=== PATIENT | female | born 1985 | race African-American/Black ===

== ENCOUNTER 2022-07-28 22:25 | Emergency (ER) | payer OTHER, SELFPAY ==
--- NOTE | ~2022-07-28 | CT_ITS ---
EXAMINATION: CT ABDOMEN AND PELVIS WITHOUT CONTRAST CLINICAL INFORMATION: Left flank pain. Evaluate for renal calculi. COMPARISON: None TECHNIQUE: Multidetector volumetric imaging was performed from the superior aspect of the liver through the pubic symphysis. Sagittal and coronal reformatted images were obtained on the technologist's workstation. This CT examination was performed using dose optimization techniques as appropriate, variously including the following: *Automated exposure control *Adjustment of mA and/or kV according to patient size (this includes techniques or standardized protocols for targeted exams where dose is matched to indication/reason for exam; i.e. extremities or head) *Use of iterative reconstruction technique DLP: 863 mGy-cm FINDINGS: LUNG BASES: No focal consolidation or pleural effusion. Mild subsegmental atelectases. LIVER, GALLBLADDER, AND BILIARY TREE: There is a 1 cm water density cyst in the right hepatic lobe. No other focal liver observation. Normal gallbladder. No biliary ductal dilatation. PANCREAS: Diffuse fatty infiltration. The main pancreatic duct is nondilated. No peripancreatic free fluid nor inflammatory changes. SPLEEN: Unremarkable. ADRENAL GLANDS: Unremarkable. KIDNEYS AND URETERS: The kidneys are normal in size, shape, and attenuation. No hydronephrosis, hydroureter, or calculi seen. No perinephric stranding. BLADDER: Unremarkable. GASTROINTESTINAL TRACT: There are several dilated loops of small bowel with air-fluid levels in the mid and lower abdomen, for instance measuring 3.8 cm in diameter on image 45, series 3. There is some degree of swirling of the mesentery with architectural distortion raising the possibility of internal hernias. There is a nonspecific metallic density versus calcification adjacent to the jejunum on image 44, series 3. Possibly short appendix (6:42) with no associated inflammatory changes in the right lower quadrant nor cecal base to suspect acute appendicitis. No pericolonic inflammatory changes. ABDOMINAL WALL: Small fat-containing periumbilical hernias with mild fat stranding and small volume of free fluid. There is also a pocket of air in the infraumbilical abdominal wall (3:57) of uncertain etiology. Right lower abdominal wall hernia containing protrusion of loops of small bowel. LYMPH NODES: No pathologically enlarged lymph nodes. VASCULAR: Abdominal aorta is of normal diameter. PELVIC VISCERA: A low density septated structure in the left adnexa could represent an ovarian cyst or loops of small bowel, for instance image 78, series 3. There is a nonspecific metallic density posterior to the uterus (3:70). OSSEOUS STRUCTURES: No acute or aggressive appearing osseous abnormalities. Partially imaged right femoral hardware. CT/CT abdomen pelvis wo IV con IMPRESSION: There are multiple dilated loops of the small bowel in the mid and lower abdomen raising the possibility of a partial small bowel obstruction. There is some architectural distortion and swirling of the mesentery which could indicate the presence of internal hernias. There are several abdominal wall hernias containing small amount of free fluid and fat stranding in the periumbilical region, correlate with physical examination for signs of infection or strangulation. A clear transition point of the bowel in association with the abdominal wall hernias is not identified. Nonspecific low density septated structure in the left adnexa, possibly associated with the left ovary, not well delineated in the absence of IV contrast. Recommend correlation with a pelvic ultrasound.
--- NOTE | ~2022-07-28 | CT_ITS ---
EXAMINATION: CT ABDOMEN AND PELVIS WITHOUT CONTRAST CLINICAL INFORMATION: Small bowel obstruction. COMPARISON: CT abdomen/pelvis earlier today at 1:58 AM. TECHNIQUE: Multidetector volumetric imaging was performed from the superior aspect of the liver through the pubic symphysis. Sagittal and coronal reformatted images were obtained on the technologist's workstation. Oral contrast was administered. This CT examination was performed using dose optimization techniques as appropriate, variously including the following: *Automated exposure control *Adjustment of mA and/or kV according to patient size (this includes techniques or standardized protocols for targeted exams where dose is matched to indication/reason for exam; i.e. extremities or head) *Use of iterative reconstruction technique DLP: 809 mGy-cm FINDINGS: LUNG BASES: The visualized lung bases are unremarkable. LIVER, GALLBLADDER, AND BILIARY TREE: Redemonstration of simple cyst in the right hepatic lobe. Normal gallbladder. No biliary ductal dilatation. PANCREAS: Fatty infiltration. No peripancreatic inflammatory changes. SPLEEN: Unremarkable. ADRENAL GLANDS: Unremarkable. KIDNEYS AND URETERS: The kidneys are normal in size, shape, and attenuation. No hydronephrosis, hydroureter, or calculi seen. No perinephric stranding. BLADDER: Decompressed limiting its evaluation. GASTROINTESTINAL TRACT: Oral contrast opacifies the stomach and a portion of the small bowel up to the level of the mid jejunum. As before, there is redemonstration of several dilated loops of small bowel in the mid and left lower abdomen with architectural distortion and swirling of the mesentery raising the possibility of internal hernias. A complete volvulus is not identified. No pericolic inflammatory changes. ABDOMINAL WALL: Redemonstration of periumbilical and right lower abdominal wall hernias, some containing protrusion of loops of small bowel but with no clear transition point at these levels to suspect the cause of obstruction. LYMPH NODES: No pathologically enlarged lymph nodes. VASCULAR: Abdominal aorta is of normal diameter. PELVIC VISCERA: Redemonstration of low density structure in the left adnexa, likely related with the left ovary. OSSEOUS STRUCTURES: No acute or aggressive appearing osseous abnormalities. Partially imaged right femoral hardware. CT/CT abdomen pelvis wo IV con IMPRESSION: Redemonstration of several dilated loops of small bowel in the medial left lower abdomen with architectural distortion and swirling of the mesentery raising the possibility of internal hernias and partial small bowel obstruction.
[2022-07-28 22:51] VITALS: BP 119/76; PULSE 80; RESP 18; TEMP 36.3; O2SAT 99; BMI 36.5
--- OUTSIDE RECORDS SUMMARY | 2022-07-29 00:07 | XMS_ITS | Continuity of Care Document ---
:1985 Author Organization [facility] Address [address] [place] [address]- Care Team Providers Name Role Phone Hameed FEEDER ASSOCIATE, Kalyani Whtie Primary Care Physician Encounter [facility] [place] Date(s): 03/18/22 - 04/17/22 [facility] [address] [place], [place] [address] Attending Physician: Joana Blackburn Admitting Physician: AdmtrJoana Referring Physician: Admtr, ArDrea Allergies, Adverse Reactions, Alerts No Known Allergies Medications Flonase 50 mcg/inh nasal spray 1 sprays, Nares, Both, 2 times a day, # 1 each, 2 Refills, Maintenance, 03/18/22 16:31:00 EDT, [place], [id number], Partial fill upon patient request if the prescription is for a schedule II opioid drug., 1 sprays Nares, Both 2 times a... Start Date: 03/18/22 Stop Date: 06/16/22 Status: Orderedibuprofen 600 mg oral tablet 1 tablet = 600 mg, By Mouth, Every 6 hours, # 30 tablet, 0 Refills, Maintenance, 09/12/14 12:02:10, Tablet Start Date: 09/12/14 Status: OrderedPercocet-5/325 325 mg-5 mg oral tablet 1 tablet, By Mouth, Every 4 hours, PRN for pain, # 10 tablet, 0 Refills, Maintenance, 09/12/14 12:02:15, Tablet Start Date: 09/12/14 Status: Ordered Social History Social History Type Response Smoking Status 10 or more cigarettes (1/2 p ack or more)/day in last 30 days entered on: 02/02/19 Sex
--- OUTSIDE RECORDS SUMMARY | 2022-07-29 00:07 | XMS_ITS | Continuity of Care Document ---
:1985 Author Organization [facility] Address [address] [place] [address]- Care Team Providers Name Role Phone Yoseph SWARTZ, Kalyani White Primary Care Physician Encounter [facility] [place]s): 03/18/22 - 03/25/22 [facility] [address], [place] [address] Attending Physician: Aldo De La Cruz DO Referring Physician: Kalyani Hameed NP Allergies, Adverse Reactions, Alerts No Known Allergies Medications Flonase 50 mcg/inh nasal spray 1 sprays, Nares, Both, 2 times a day, # 1 each, 2 Refills, Maintenance, 03/18/22 16:31:00 EDT, [place], [id number], Partial fill upon patient request if the [...] 12:02:15, Tablet Start Date: 09/12/14 Status: Ordered Vital Signs Most recent to oldest [Reference Range]: 1 Height 165 cm (03/18/22 4:10 PM) Oxygen Saturation [94-100 %] 100 % (03/18/22 4:10 PM) Pulse Rate [55-90 bpm] 90 bpm (03/18/22 4:10 PM) Blood Pressure [90-138/55-84 mm Hg] 114/72 mm Hg (03/18/22 4:10 PM) Respiratory Rate [16-30 br/min] 20 br/min (03/18/22 4:10 PM) Temperature [96.8-100.4 DegF] 97.9 DegF (03/18/22 4:10 PM) Mode of Delivery (Oxygen) Room air (03/18/22 4:10 PM) Blood pressure sites Arm, left (03/18/22 4:10 PM) Temperature Route Temporal (03/18/22 4:10 PM) Social History Social History Type Response Smoking Status 10 or more cigarettes (1/2 p ack or more)/day in last 30 days entered on: 02/02/19 Sex
--- NOTE | 2022-07-29 00:30 | ED.GENADULT ---
HPI - General Adult General Chief complaint: General Medical Stated complaint: pain shifting through lower back, sharp to touch Time Seen by Provider: 07/28/22 23:58 Source: patient Mode of arrival: ambulatory Limitations: no limitations History of Present Illness HPI narrative: 36-year-old female came in for evaluation of left flank pain. Left flank pain started 3 days ago, described as constant pain moderate 7/10, dull aching pain localized to the left flank area with no radiation, no aggravating factor, no relieving factor, patient decline dysuria or blood in the urine or urinary frequency. No fever, no chills, normal bowel movement, normal passing flatus. Related Data Allergies Allergy/AdvReac Type Severity Reaction Status Date / Time No Known Allergies Allergy Verified 07/28/22 22:54 Review of Systems Review of Systems: All other systems are reviewed and are negative Constitutional: Reports as per HPI and Reports no additional constitutional complaints Eyes: Reports as per HPI and Reports no additional eye complaints Reports system reviewed and no additional complaints, except as documented Cardiovascular: Reports as per HPI and Reports no additional cardiovascular complaints Respiratory: Reports as per HPI and Reports no additional respiratory complaints Gastrointestinal: Reports as per HPI and Reports no additional gastrointestinal complaints Genitourinary: Reports no additional female genitourinary complaints Musculoskeletal: Reports no additional musculoskeletal complaints Skin/Breast: Reports system reviewed and no additional complaints, except as docu Psychiatric: Reports no additional psychiatric complaints Endocrine: Reports no additional endocrine complaints Hematologic/Lymphatic: Reports no additional hematologic/lymphatic complaints Allergic/Immunologic: Reports no additional allergic/immunologic complaints Reports system reviewed and no additional complaints, except as documented and Reports Abnormal speech present [facility] Social History Social History Smoked in Last 30 Days: No Use of substances other than those prescribed or required for medical reasons: No Advance Directives: No Physical Exam ED Vital Signs: Vital Signs - 24 hr 07/28/22 22:51 07/29/22 02:00 07/29/22 04:25 Temperature 97.4 F 98.0 F Pulse Rate 80 67 77 Respiratory Rate 18 16 Blood Pressure 119/76 112/65 115/65 Pulse Oximetry 99 98 97 Oxygen Delivery Method Room Air Room Air Room Air 07/29/22 06:24 Temperature 98.2 F Pulse Rate 74 Respiratory Rate 16 Blood Pressure 113/59 L Pulse Oximetry 98 Oxygen Delivery Method Room Air BMI result Body Mass Index 36.5 Vital signs have been reviewed as appeared to be correct. Blood pressure normal. Heart rate normal. Respiration rate normal. Temperature normal. Oxygen saturation normal. Appearance: Alert. Oriented X3. No acute distress. Head: Normal external exam. Normocephalic. Atraumatic. No Sanchez signs noted. No raccoon eyes noted Eyes: PERRLA. EOMI. Conjunctiva and sclera normal. Eyelids normal. ENT: TM's Normal. Pharynx normal. Uvula midline. Moist mucous membranes. No trismus noted. No drooling noted. No muffled voice noted. Neck: Normal inspection. Neck supple. FROM. No adenopathy. Thyroid Normal. No meningeal signs. No neck mass noted. CVS: Normal heart rate and rhythm. Heart sound normal. No murmurs noted. Pulses normal throughout. Respiratory: No respiratory distress. Painless inspiration. Breath sounds normal. No wheezes/rales/rhonchi noted. Chest nontender. No accessory muscle usage noted or decreased air movement noted. Abdomen: Soft and nontender. Bowel sounds normal in all 4 quadrants. No distention noted. No organomegaly noted. No visible injury noted. Back: Left CVA tenderness. Full range of motion noted. Skin: Skin warm and dry. Normal skin color. Normal skin turgor. No rashes/lesions/lacerations noted. Extremities: No lower extremity edema. Extremities exhibit normal range of motion. Extremities nontender. Neuro: Oriented X 3. Cranial nerve exam: II-XII are grossly intact No motor deficit. No sensory deficit. Reflexes normal. Course Course Course Narrative: 36-year-old female history of rupture appendectomy at age 5 presented with abdominal pain and CT is consistent with small-bowel obstruction case discussed with who requested repeat CT with p.o. contrast, result of the CT scan with contrast still consistent with a small-bowel obstruction patient will be evaluated by in the ED. The case was signed out to to follow-up on the consultation. Medications Administered Discontinued Medications Generic Name Dose Route Start Last Admin Trade Name Freq PRN Reason Stop Dose Admin Diatrizoate Meglum/Diatrizoate Sod 30 ml 07/29/22 04:40 07/29/22 04:41 Diatrizoate Meglumine, Sodium 30 Ml Solution PO 07/29/22 04:41 30 ml ONCE ONE Administration Sodium Chloride 1,000 mls @ 999 mls/hr 07/29/22 00:28 07/29/22 03:47 Ns IV 07/29/22 01:28 Infused .Q1H1M ONE Infusion Ketorolac Tromethamine 15 mg 07/29/22 00:28 07/29/22 01:15 Ketorolac Tromethamine 15 Mg/Ml Vial IVPUSH 07/29/22 00:29 15 mg ONCE ONE Administration Morphine Sulfate 2 mg 07/29/22 00:28 07/29/22 01:16 Morphine Sulfate 2 Mg/Ml Cartridge IVPUSH 07/29/22 00:29 2 mg ONCE ONE Administration Protocol Medical Decision Making Lab Data Lab results reviewed: Yes I reviewed the patient's lab results. Result diagrams: 07/29/22 00:45 07/29/22 00:45 Labs: Lab Results 07/29/22 07/29/22 07/29/22 Range/Units 00:45 00:45 00:45 WBC 9.0 (4.8-10.8) X10*3/uL RBC 5.28 (4.20-5.50) X10*6/uL Hgb 13.5 (12.0-16.0) g/dl Hct 42.7 (37.0-47.0) % MCV 80.9 (80.0-98.0) fL MCH 25.6 L (27.0-33.0) pg MCHC 31.6 (31.0-35.0) g/dl RDW 15.0 (11.0-16.0) % Plt Count 345 (160-400) X10*3/uL MPV 10.3 (9.4-12.3) fL Immature Gran % (Auto) 0.4 (0.0-0.4) % Neut % (Auto) 57.2 (45-73) % Lymph % (Auto) 35.2 (20-40) % Taylor % (Auto) 4.4 (2-11) % Eos % (Auto) 2.2 (0-4) % Baso % (Auto) 0.6 (0-2) % Lymph # (Auto) 3.2 (1.2-4.9) X10*3/uL Taylor # (Auto) 0.4 (0.1-1.2) X10*3/uL Eos # (Auto) 0.2 (0.0-0.4) X10*3/uL Baso # (Auto) 0.1 (0.0-0.2) X10*3/uL Abs Immat Gran (auto) 0.04 H (0.00-0.03) X10*3/uL Absolute Neuts (auto) 5.2 (2.0-8.3) x10*3/uL Absolute Nucleated RBC 0.000 (0.0-0.012) X10*3/uL Nucleated RBC % (auto) 0.0 (0.0-0.2) /100WBC Sodium 139 (135-145) mmol/L Potassium 5.0 (3.3-5.1) mmol/L Chloride 108 (96-108) mmol/L Carbon Dioxide 22 (22-29) mmol/L Anion Gap 14 (12-20) BUN 14 (9-16) mg/dL Creatinine 0.83 (0.5-1.4) mg/dL Estim Creat Clear Calc 101.7 Estimated GFR > 60 Random Glucose 105 (60-115) mg/dL Calcium 9.9 (8.4-10.2) mg/dL Total Bilirubin 0.2 (0.0-1.0) mg/dL Direct Bilirubin < 0.2 (0.0-0.5) mg/dL AST 22 (5-31) U/L ALT 15 (0-31) U/L Alkaline Phosphatase 78 (39-117) U/L Total Protein 7.0 (6.5-8.0) g/dL Albumin 4.1 (3.5-5.0) g/dL Lipase 61 (8-78) U/L Urine Color Urine Appearance Urine pH (5.0-9.0) Ur Specific [place] (1.005-1.025) Urine Protein (Neg-Trace) mg/dL Urine Glucose (UA) (Negative) mg/dL Urine Ketones (Negative) mg/dL Urine Blood (Negative) Urine Nitrite (Negative) Ur Leukocyte Esterase (Negative) Urine RBC (0-2) /HPF Urine WBC (0-5) /HPF Ur Squamous Epith Cells (0-2) /HPF Urine Bacteria (None Seen) Hyaline Casts (0-2) /LPF Urine Test NEGATIVE (NEGATIVE) 07/29/22 Range/Units 00:45 WBC (4.8-10.8) X10*3/uL RBC (4.20-5.50) X10*6/uL Hgb (12.0-16.0) g/dl Hct (37.0-47.0) % MCV (80.0-98.0) fL MCH (27.0-33.0) pg MCHC (31.0-35.0) g/dl RDW (11.0-16.0) % Plt Count (160-400) X10*3/uL MPV (9.4-12.3) fL Immature Gran % (Auto) (0.0-0.4) % Neut % (Auto) (45-73) % Lymph % (Auto) (20-40) % Taylor % (Auto) (2-11) % Eos % (Auto) (0-4) % Baso % (Auto) (0-2) % Lymph # (Auto) (1.2-4.9) X10*3/uL Taylor # (Auto) (0.1-1.2) X10*3/uL Eos # (Auto) (0.0-0.4) X10*3/uL Baso # (Auto) (0.0-0.2) X10*3/uL Abs Immat Gran (auto) (0.00-0.03) X10*3/uL Absolute Neuts (auto) (2.0-8.3) x10*3/uL Absolute Nucleated RBC (0.0-0.012) X10*3/uL Nucleated RBC % (auto) (0.0-0.2) /100WBC Sodium (135-145) mmol/L Potassium (3.3-5.1) mmol/L Chloride (96-108) mmol/L Carbon Dioxide (22-29) mmol/L Anion Gap (12-20) BUN (9-16) mg/dL Creatinine (0.5-1.4) mg/dL Estim Creat Clear Calc Estimated GFR Random Glucose (60-115) mg/dL Calcium (8.4-10.2) mg/dL Total Bilirubin (0.0-1.0) mg/dL Direct Bilirubin (0.0-0.5) mg/dL AST (5-31) U/L ALT (0-31) U/L Alkaline Phosphatase (39-117) U/L Total Protein (6.5-8.0) g/dL Albumin (3.5-5.0) g/dL Lipase (8-78) U/L Urine Color Yellow Urine Appearance Cloudy Urine pH 7.0 (5.0-9.0) Ur Specific [place] 1.020 (1.005-1.025) Urine Protein Negative (Neg-Trace) mg/dL Urine Glucose (UA) Negative (Negative) mg/dL Urine Ketones Negative (Negative) mg/dL Urine Blood Trace H (Negative) Urine Nitrite Positive H (Negative) Ur Leukocyte Esterase Negative (Negative) Urine RBC 0-2 (0-2) /HPF Urine WBC 0-5 (0-5) /HPF Ur Squamous Epith Cells >20 (0-2) /HPF Urine Bacteria 4+ (None Seen) Hyaline Casts 6-10 (0-2) /LPF Urine Test (NEGATIVE) Imaging Data CT scan - abdomen: Attestation: I personally reviewed and interpreted this imaging study as follows: Radiologist's impression: Redemonstration of several dilated loops of small bowel in the medial left lower abdomen with architectural distortion and swirling of the mesentery raising the possibility of internal hernias and partial small bowel obstruction. ? Discharge Plan Discharge Clinical Impression: Abdominal pain, Small bowel obstruction Patient Disposition: Still a Patient
[2022-07-29 01:03] LABS: Appearance Urine Cloudy; Color Urine Yellow; Glucose Urine UA Negative (Negative); Leukocyte Esterase Urine Negative (Negative); Nitrite Urine Positive (Negative); UMIC TRIGGER UACC YES; Urine Blood Trace (Negative); Urine Ketones Negative (Negative); Urine Protein Negative (Neg-Trace)
[2022-07-29 01:05] LABS: UPreg QC Valid YES; Urine Pregnancy NEGATIVE (NEGATIVE)
[2022-07-29] MEDS: 0.9 % Sodium Chloride 1,000 ML 999 ML IV (01:15)
[2022-07-29] MEDS: Ketorolac Tromethamine 15 MG/ML VIAL IVPUSH (01:15)
[2022-07-29 01:16] LABS: Bacteria Urine 4+ (None Seen); RBC Urine 0-2 /HPF (0-2); Squamous Epithelial Cell Urine >20 /HPF (0-2); UACC Culture Trigger YES; WBC Urine 0-5 /HPF (0-5)
[2022-07-29] MEDS: Morphine Sulfate 2 MG/ML CARTRIDGE IVPUSH (01:16)
[2022-07-29 01:24] LABS: MANUAL DIFF FLAG NO
[2022-07-29 01:27] LABS: Basophils Absolute Auto 0.1 X10*3/uL (0.0-0.2); Basophils Percent Auto 0.6 % (0-2); Eosinophils Absolute Auto 0.2 X10*3/uL (0.0-0.4); Eosinophils Percent Auto 2.2 % (0-4); Hematocrit 42.7 % (37.0-47.0); Hemoglobin 13.5 g/dl (12.0-16.0); Imm Gran Abs Auto 0.04 X10*3/uL (0.00-0.03); Imm Gran Pct Auto 0.4 % (0.0-0.4); Lymphocytes Absolute Auto 3.2 X10*3/uL (1.2-4.9); Lymphocytes Percent Auto 35.2 % (20-40); Mean Corpuscular HGB Conc 31.6 g/dl (31.0-35.0); Mean Corpuscular Hemoglobin 25.6 pg (27.0-33.0); Mean Corpuscular Volume 80.9 fL (80.0-98.0); Mean Platelet Volume 10.3 fL (9.4-12.3); Monocytes Absolute Auto 0.4 X10*3/uL (0.1-1.2); Monocytes Percent Auto 4.4 % (2-11); Neutrophils Absolute Auto 5.2 x10*3/uL (2.0-8.3); Neutrophils Percent Auto 57.2 % (45-73); Platelet Count 345 X10*3/uL (160-400); Red Blood Count 5.28 X10*6/uL (4.20-5.50)
[2022-07-29 01:49] LABS: Alanine Aminotransferase 15 U/L (0-31); Albumin Level 4.1 g/dL (3.5-5.0); Alkaline Phosphatase 78 U/L (39-117); Anion Gap 14 (12-20); Aspartate Amino Transferase 22 U/L (5-31); Bilirubin Direct < 0.2 mg/dL (0.0-0.5); Bilirubin Total 0.2 mg/dL (0.0-1.0); Blood Urea Nitrogen 14 mg/dL (9-16); Calcium 9.9 mg/dL (8.4-10.2); Carbon Dioxide 22 mmol/L (22-29); Chloride 108 mmol/L (96-108); Creatinine Clr Calc Pharmacy 101.7; Estimated Glomerular Filt Rate > 60; Glucose Random 105 mg/dL (60-115); Sodium 139 mmol/L (135-145)
[2022-07-29 02:00] VITALS: BP 112/65; PULSE 67; TEMP 36.7; O2SAT 98
[2022-07-29 02:03] LABS: Lipase 61 U/L (8-78)
[2022-07-29 04:25] VITALS: BP 115/65; PULSE 77; RESP 16; O2SAT 97
[2022-07-29] MEDS: Diatrizoate Meglumine, Sodium 30 ML SOLUTION PO (04:41)
[2022-07-29 06:24] VITALS: BP 113/59; PULSE 74; RESP 16; TEMP 36.8; O2SAT 98
--- NOTE | 2022-07-29 06:24 | PC.NURSE ---
THIS PCT ASSUMED CARE OF PT AT 0625 VS TAKEN ,I OFFER PT TO CHANGE INTO HOSPITAL ATTIRE ,BUT PT REFUSED .
--- NOTE | 2022-07-29 08:36 | P.CONGS_ITS ---
History of Present Illness Consult details Consult date: 07/29/22 Narrative: 36-year-old female who came to the emergency room last night because of what she described as back pain. She says she has had chronic back pain because of a disc disease for years. She started to have this lumbar pain about 3-4 days ago. This had persisted so she came to the emergency room yesterday. She says the pain has improved significantly. She had a CAT scan however which was officially read as question of partial small-bowel obstruction and possible internal hernia. The patient however den ies any abdominal pain. She says she has good oral intake. She has good bowel movements and is passing flatus well. She clearly states that her pain is on the lower back says she does not have any abdominal complaints at all. She says she had abdominal surgery when she was 5 years old because of appendicitis. She says she has had no abdominal isues since that time. Review of Systems Constitutional: Constitutional: Denies chills and Denies fever(s) Cardiovascular: Cardiovascular: Denies chest pain, Denies dyspnea and Denies dyspnea on exertion Respiratory: Respiratory: Denies cough, Denies dyspnea and Denies dyspnea on exertion Gastrointestinal: Gastrointestinal: Denies hematochezia and Denies change in bowel habits Genitourinary: Genitourinary: Denies hematuria Musculoskeletal: Musculoskeletal: Reports back pain and Denies limited range of motion Neurologic: Denies focal weakness and Denies convulsions Psychiatric: Psychiatric: Denies depression and Denies mood swings PMFSH Past Medical History Medical History (Updated 07/30/22 @ 00:02 by Mary Grace Ortega) Chronic back pain Social History Social History Smoked in Last 30 Days: No Use of substances other than those prescribed or required for medical reasons: No Advance Directives: No Meds Allergies Allergy/AdvReac Type Severity Reaction Status Date / Time No Known Allergies Allergy Verified 07/28/22 22:54 Physical Exam Vital Signs: Vital Signs: Last Vital Signs Temp 98.2 F 07/29/22 06:24 Pulse 74 07/29/22 06:24 Resp 16 07/29/22 06:24 BP 113/59 L 07/29/22 06:24 Pulse Ox 98 07/29/22 06:24 O2 Del Method 07/29/22 06:24 BMI result Body Mass Index 36.5 Const: General: comfortable and no acute distress Orientation/conscio usness: patient oriented x3 Neck: Neck: Yes no lymphadenopathy Resp: Auscultation: clear to auscultation bilaterally Cardio: Rhythm: regular rhythm GI: Palpation (GI): Soft to palpation, nontender, no guarding and not rigid Neuro: General: patient oriented x3 Results Labs Result diagrams: 07/29/22 00:45 07/29/22 00:45 Labs: Abnormal lab results 07/29/22 07/29/22 Range/Units 00:45 00:45 MCH 25.6 L (27.0-33.0) pg Abs Immat Gran (auto) 0.04 H (0.00-0.03) X10*3/uL Urine Blood Trace H (Negative) Urine Nitrite Positive H (Negative) Short CBC 07/29/22 Range/Units 00:45 WBC 9.0 (4.8-10.8) X10*3/uL Hgb 13.5 (12.0-16.0) g/dl Hct 42.7 (37.0-47.0) % Plt Count 345 (160-400) X10*3/uL BMP 07/29/22 00:45 Sodium 139 Potassium 5.0 Chloride 108 Carbon Dioxide 22 BUN 14 Creatinine 0.83 Calcium 9.9 Liver Function 07/29/22 Range/Units 00:45 Total Bilirubin 0.2 (0.0-1.0) mg/dL Direct Bilirubin < 0.2 (0.0-0.5) mg/dL AST 22 (5-31) U/L ALT 15 (0-31) U/L Alkaline Phosphatase 78 (39-117) U/L Albumin 4.1 (3.5-5.0) g/dL Urine 07/29/22 07/29/22 Range/Units 00:45 00:45 Urine Color Yellow Urine Appearance Cloudy Urine pH 7.0 (5.0-9.0) Ur Specific [place] 1.020 (1.005-1.025) Urine Protein Negative (Neg-Trace) mg/dL Urine Glucose (UA) Negative (Negative) mg/dL Urine Test NEGATIVE (NEGATIVE) All other labs normal. Assessment and Plan (1) Chronic back pain: Status: Acute I had examined her thigh early and she had does not have any abdominal tenderness at all. Furthermore, she completely denies any recent abdominal pain. She insists that she came in because of back pain. Her abdominal exam is very benign. Her labs are abnormal. I have reviewed her CAT scan with another radiologist Dr. Mcclellan and he does not feel that the patient has any bowel obstruction or any signs of internal hernia. There is a small incisional hernia with a nonobstructed bowel loop. She has good amounts of air distally all the way to the colon and rectum. She does not have any leukocytosis. Clinically and radiologically, it does not appear that she actually small- bowel obstruction. I would recommend giving her food and she may be discharged emergency room. She does have a diagnosis of disc disease may explain her recurrent back pain. She is also actually stating that she wants to go home now from the ER. Procedures Date of Service Date of Service: 07/29/22
--- NOTE | 2022-07-29 09:00 | PC.NURSE ---
eating and drinking with no issues. pt reports she is ready to go home. md to contact surgery.
--- NOTE | 2022-07-29 09:38 | PC.NURSE ---
ate breakfast, reports using drugs and interested in talking w reading coach, states he doesn't currently take any meds
== END 2022-07-29 10:14 | disposition still patient (30) ==
PROVIDERS: Emergency Medicine; Nurse Practitioner Family; Emergency Provider Emergency Medicine Emergency Medical Services
DX: R10.9 Unspecified abdominal pain (principal); K56.600 Partial intestinal obstruction, unspecified as to cause; N39.0 Urinary tract infection, site not specified; B96.20 Unspecified Escherichia coli [E. coli] as the cause of diseases classified elsewhere
CPT/HCPCS: 36415; 74176; 80048; 80076; 81001; 81025; 83690; 85025; 87086; 87088; 87186; 96361; 96374; 96375; 99284; J1885; J2270

== ENCOUNTER 2022-11-18 22:54 | Emergency (ER) | payer OTHER, SELFPAY ==
--- NOTE | 2022-11-18 | ECG_ITS ---
Test Reason : chest pain Blood Pressure : / mmHG Vent. Rate : 096 BPM Atrial Rate : 096 BPM P-R Int : 138 ms QRS Dur : 068 ms QT Int : 338 ms P-R-T Axes : 036 050 036 degrees QTc Int : 427 ms Normal sinus rhythm Nonspecific T wave abnormality Abnormal ECG No previous ECGs available Referred By: Generic ED Physician Electronically Signed By:BRANDON URIARTE MD
--- NOTE | ~2022-11-18 | XR_ITS ---
EXAMINATION: XR CHEST CLINICAL INFORMATION: Chest pain COMPARISON: None TECHNIQUE: Frontal view of the chest was obtained. FINDINGS: The lungs are clear with no focal consolidation. No evidence of pneumothorax, pulmonary edema, or pleural effusions. The cardiomediastinal silhouette is unremarkable. No acute osseous findings. XR/XR chest 1V IMPRESSION: No acute cardiopulmonary findings.
[2022-11-18 22:58] VITALS: BP 128/72; PULSE 105; RESP 16; TEMP 36.4; O2SAT 98; BMI 38.0
[2022-11-18 23:30] LABS: MANUAL DIFF FLAG NO
[2022-11-18 23:31] LABS: Basophils Absolute Auto 0.1 X10*3/uL (0.0-0.2); Basophils Percent Auto 0.7 % (0-2); Eosinophils Absolute Auto 0.3 X10*3/uL (0.0-0.4); Eosinophils Percent Auto 4.5 % (0-4); Hematocrit 37.6 % (37.0-47.0); Imm Gran Abs Auto 0.02 X10*3/uL (0.00-0.03); Imm Gran Pct Auto 0.3 % (0.0-0.4); Lymphocytes Absolute Auto 1.9 X10*3/uL (1.2-4.9); Lymphocytes Percent Auto 26.3 % (20-40); Mean Corpuscular HGB Conc 31.9 g/dl (31.0-35.0); Mean Corpuscular Hemoglobin 24.9 pg (27.0-33.0); Mean Corpuscular Volume 78.2 fL (80.0-98.0); Mean Platelet Volume 9.4 fL (9.4-12.3); Monocytes Absolute Auto 0.6 X10*3/uL (0.1-1.2); Monocytes Percent Auto 7.5 % (2-11); Neutrophils Absolute Auto 4.4 x10*3/uL (2.0-8.3); Neutrophils Percent Auto 60.7 % (45-73); Platelet Count 347 X10*3/uL (160-400); Red Blood Count 4.81 X10*6/uL (4.20-5.50); Red Cell Distribution Width 14.8 % (11.0-16.0); White Blood Count 7.3 X10*3/uL (4.8-10.8)
[2022-11-18 23:47] LABS: Alanine Aminotransferase 21 U/L (0-31); Albumin Level 3.8 g/dL (3.5-5.0); Alkaline Phosphatase 91 U/L (39-117); Anion Gap 14 (12-20); Aspartate Amino Transferase 18 U/L (5-31); Bilirubin Total 0.4 mg/dL (0.0-1.0); Blood Urea Nitrogen 10 mg/dL (9-16); Calcium 8.8 mg/dL (8.4-10.2); Carbon Dioxide 23 mmol/L (22-29); Chloride 106 mmol/L (96-108); Creatinine Clr Calc Pharmacy 116.9; Estimated Glomerular Filt Rate > 60; Glucose Random 108 mg/dL (60-115); Potassium 3.8 mmol/L (3.3-5.1); Sodium 139 mmol/L (135-145); Total Protein 6.6 g/dL (6.5-8.0)
[2022-11-18 23:54] LABS: Troponin-I High Sensitivity < 3.5 ng/L (<3.5-17.0)
[2022-11-19 01:01] VITALS: BP 130/70; PULSE 89; RESP 18; TEMP 36.2; O2SAT 98
--- NOTE | 2022-11-19 01:04 | ED.CHESTPAIN ---
HPI - Chest Pain General Chief Complaint: Chest Pain Stated Complaint: Chest Pain Time Seen by Provider: 11/19/22 00:57 Source: patient Mode of arrival: ambulatory Limitations: no limitations History of Present Illness HPI narrative: patient comes to the emergency room complaining of bilateral chest pain with for 2 days , worse with deep inspirations and certain movements. At rest patient has no pain.. Patient states that she has not had any URI, Cough, heavy lifting. Related Data Previous Rx's Medication Instructions Recorded cyclobenzaprine 10 mg tablet 10 mg PO TID PRN pain, muscle 07/29/22 spasm #15 tabs morphine 15 mg immediate release 15 mg PO Q4-6H PRN pain #10 tabs 07/29/22 tablet cefuroxime axetil 250 mg tablet 250 mg PO Q12H #14 tabs 08/02/22 acetaminophen 500 mg tablet 500 mg PO Q6H PRN fever or pain 11/19/22 #14 tabs Allergies Allergy/AdvReac Type Severity Reaction Status Date / Time No Known Allergies Allergy Verified 07/28/22 22:54 Review of Systems Review of Systems: Constitutional : No Weight loss, No Fever, No Chills, No Night Sweats, No Fatigue, No Malaise ENT/Mouth : No Hearing loss, No Ear Pain, No Nasal Congestion, No Sinus Pain, No Hoarseness, No sore throat, No Rhinorrhea, No Swallowing Difficulty Eyes: No Eye Pain, No Swelling, No Redness, No Foreign Body, No Discharge, No Vision Changes Cardiovascular : Bilateral chest pain with deep inspiration and certain movements, No SOB, No Dyspnea on Exertion, No Orthopnea, No Edema, No Palpitations Respiratory : No Cough, No Sputum, No Wheezing, No Smoke Exposure, No Dyspnea Gastrointestinal : No Nausea, No Vomiting, No Diarrhea, No Constipation, No abdominal Pain, No Hematochezia, No Melena Genitourinary : no irregular bleeding, No Dysuria, No Urinary Frequency, No Hematuria, No Urinary Incontinence, No Urgency, No Flank Pain, No Urinary Flow Changes, No Hesitancy Musculoskeletal : No joint pain, No Myalgias, No Joint Swelling Skin : No Skin Lesions, No rash Neuro : No Weakness, No Numbness, No Paresthesias, No Loss of Consciousness, No Dizziness, No Headache Psych : No Anxiety/Panic, No Depression, No SI/HI/AH/VH, No Social Issues, Heme/Lymph: No Bruising, No Bleeding,No Lymphadenopathy Endocrine : No Polyuria, No Polydipsia, No Temperature Intolerance [facility] Past Medical History Medical History Chronic back pain Social History Social History Advance Directives: No Advance Directives Information Provided: Yes Physical Exam Vital Signs: Vital Signs: Last Vital Signs Temp 97.1 F 11/19/22 01:01 Pulse 89 11/19/22 01:01 Resp 18 11/19/22 01:01 BP 130/70 11/19/22 01:01 Pulse Ox 98 11/19/22 01:01 O2 Del Method 11/19/22 01:01 BMI result Body Mass Index 38.0 Const: Other: Appearance: Alert. Oriented X3. No acute distress. Eyes: Pupils equal, round and reactive to light. ENT: Pharynx normal. Neck: Normal inspection. Neck supple. No lymph nodes noted. No crepitus CVS: Normal heart rate and rhythm. Pulses normal. Normal S1 and S2 Respiratory: No respiratory distress. Breath sounds normal. No Wheezing. No rales Abdomen: Soft and nontender. No rigidity. No distention. Skin: Skin warm and dry. Normal skin color. Normal skin turgor. Extremities: No lower extremity edema. No Lacerations. No Rash Neuro: Oriented X 3. No motor deficit. No sensory deficit. Moving all extremities. No slurred speech. CN 2 through 12 grossly intact Psych: calm, cooperative, normal affect Medical Decision Making Medical Decision Making MDM Narrative: - troponin negative, labs unremarkable. Physical exam normal, normal vitals - EKG interpreted by me: Sinus rhythm, heart rate 96, no ST segment depression or elevation, no T-wave inversions, QTC 427 Lab Data 11/18/22 23:26 11/18/22 23:26 Labs: Lab Results 11/18/22 11/18/22 11/18/22 Range/Units 23:26 23:26 23:26 WBC 7.3 (4.8-10.8) X10*3/uL RBC 4.81 (4.20-5.50) X10*6/uL Hgb 12.0 (12.0-16.0) g/dl Hct 37.6 (37.0-47.0) % MCV 78.2 L (80.0-98.0) fL MCH 24.9 L (27.0-33.0) pg MCHC 31.9 (31.0-35.0) g/dl RDW 14.8 (11.0-16.0) % Plt Count 347 (160-400) X10*3/uL MPV 9.4 (9.4-12.3) fL Immature Gran % (Auto) 0.3 (0.0-0.4) % Neut % (Auto) 60.7 (45-73) % Lymph % (Auto) 26.3 (20-40) % Price % (Auto) 7.5 (2-11) % Eos % (Auto) 4.5 H (0-4) % Baso % (Auto) 0.7 (0-2) % Lymph # (Auto) 1.9 (1.2-4.9) X10*3/uL Price # (Auto) 0.6 (0.1-1.2) X10*3/uL Eos # (Auto) 0.3 (0.0-0.4) X10*3/uL Baso # (Auto) 0.1 (0.0-0.2) X10*3/uL Abs Immat Gran (auto) 0.02 (0.00-0.03) X10*3/uL Absolute Neuts (auto) 4.4 (2.0-8.3) x10*3/uL Absolute Nucleated RBC 0.000 (0.0-0.012) X10*3/uL Nucleated RBC % (auto) 0.0 (0.0-0.2) /100WBC Sodium 139 (135-145) mmol/L Potassium 3.8 D (3.3-5.1) mmol/L Chloride 106 (96-108) mmol/L Carbon Dioxide 23 (22-29) mmol/L Anion Gap 14 (12-20) BUN 10 (9-16) mg/dL Creatinine 0.74 (0.5-1.4) mg/dL Estim Creat Clear Calc 116.9 Estimated GFR > 60 Random Glucose 108 (60-115) mg/dL Calcium 8.8 D (8.4-10.2) mg/dL Total Bilirubin 0.4 (0.0-1.0) mg/dL AST 18 (5-31) U/L ALT 21 (0-31) U/L Alkaline Phosphatase 91 (39-117) U/L Troponin I High Sens < 3.5 (<3.5-17.0) ng/L Total Protein 6.6 (6.5-8.0) g/dL Albumin 3.8 (3.5-5.0) g/dL Discharge Plan Discharge Clinical Impression: Pleurisy Patient Disposition: Home, Self-Care Instructions: Pleurisy (ED) Additional Instructions: Please follow-up with your primary care physician tomorrow. If you have any worsening or new symptoms, please return to the emergency room or call 911 Prescriptions: New acetaminophen 500 mg tablet 500 mg PO Q6H PRN (Reason: fever or pain) Qty: 14 0RF No Action cyclobenzaprine 10 mg tablet 10 mg PO TID PRN (Reason: pain, muscle spasm) Qty: 15 0RF morphine 15 mg tablet 15 mg PO Q4-6H PRN (Reason: pain) Qty: 10 0RF Rx Instructions: The patient may ask for partial fill; Partial Fill upon patient request. cefuroxime axetil 250 mg tablet 250 mg PO Q12H Qty: 14 0RF
[2022-11-19] MEDS: Acetaminophen 325 MG TABLET 975 MG PO (01:10)
== END 2022-11-19 01:19 | disposition home or self-care (01) ==
PROVIDERS: Emergency Provider Emergency Medicine
DX: R09.1 Pleurisy (principal); R07.89 Other chest pain; Z79.899 Other long term (current) drug therapy
CPT/HCPCS: 36415; 71045; 80053; 84484; 85025; 93005; 99283; 99284

== ENCOUNTER 2022-12-24 22:46 | Emergency (ER) | payer MEDICAID, SELFPAY ==
--- NOTE | ~2022-12-24 | US_ITS ---
EXAMINATION: US PELVIS CLINICAL INFORMATION: Pain COMPARISON: CT dated 07/29/2022 TECHNIQUE: Ultrasound of the pelvis is performed utilizing transabdominal technique only. The patient refused vaginal exam.. FINDINGS: Uterus: The uterus is anteverted and measures 10.5 x 4.2 x 5.2 cm. The double wall endometrial thickness is 10 mm. The uterus is smooth in contour and has normal myometrial echogenicity. No visible fibroid. Adnexa: Ovaries not seen. In the left adnexa is a 1.9 x 2.0 anechoic structure, which may be unchanged from prior. This could represent a paraovarian cyst or potentially a hydrosalpinx. No follow-up imaging recommended. There is no pelvic ascites or fluid collection. US/US pelvic complete IMPRESSION: * Nondiagnostic exam for ovarian torsion. * Ovaries not seen.
[2022-12-24 22:49] VITALS: BP 119/86; PULSE 104; RESP 20; TEMP 36.8; O2SAT 98; BMI 37.7
[2022-12-24 23:24] LABS: MANUAL DIFF FLAG NO
[2022-12-24 23:25] LABS: Basophils Absolute Auto 0.1 X10*3/uL (0.0-0.2); Basophils Percent Auto 0.7 % (0-2); Eosinophils Absolute Auto 0.4 X10*3/uL (0.0-0.4); Eosinophils Percent Auto 6.2 % (0-4); Hematocrit 38.2 % (37.0-47.0); Hemoglobin 11.9 g/dl (12.0-16.0); Imm Gran Abs Auto 0.03 X10*3/uL (0.00-0.03); Imm Gran Pct Auto 0.4 % (0.0-0.4); Lymphocytes Absolute Auto 2.1 X10*3/uL (1.2-4.9); Lymphocytes Percent Auto 30.2 % (20-40); Mean Corpuscular HGB Conc 31.2 g/dl (31.0-35.0); Mean Corpuscular Hemoglobin 24.3 pg (27.0-33.0); Mean Platelet Volume 9.1 fL (9.4-12.3); Monocytes Absolute Auto 0.5 X10*3/uL (0.1-1.2); Monocytes Percent Auto 7.5 % (2-11); Neutrophils Absolute Auto 3.9 x10*3/uL (2.0-8.3); Platelet Count 412 X10*3/uL (160-400); Red Cell Distribution Width 15.5 % (11.0-16.0); White Blood Count 7.1 X10*3/uL (4.8-10.8)
[2022-12-24 23:41] LABS: Alanine Aminotransferase 10 U/L (0-31); Albumin Level 3.8 g/dL (3.5-5.0); Alkaline Phosphatase 102 U/L (39-117); Anion Gap 11 (12-20); Aspartate Amino Transferase 14 U/L (5-31); Bilirubin Total 0.4 mg/dL (0.0-1.0); Blood Urea Nitrogen 9 mg/dL (9-16); Calcium 9.1 mg/dL (8.4-10.2); Carbon Dioxide 24 mmol/L (22-29); Chloride 110 mmol/L (96-108); Creatinine Clr Calc Pharmacy 116.7; Estimated Glomerular Filt Rate > 60; Glucose Random 99 mg/dL (60-115); Potassium 4.2 mmol/L (3.3-5.1); Sodium 141 mmol/L (135-145); Total Protein 6.8 g/dL (6.5-8.0)
[2022-12-25 00:36] LABS: Appearance Urine Cloudy; Color Urine Yellow; Glucose Urine UA Negative (Negative); Leukocyte Esterase Urine Small (1+) (Negative); Nitrite Urine Positive (Negative); PH 6.5 (5.0-9.0); Specific Gravity - Urine 1.025 (1.005-1.025); UMIC TRIGGER UACC YES; Urine Blood Large (3+) (Negative); Urine Ketones Trace mg/dL (Negative); Urine Protein Trace mg/dL (Neg-Trace)
[2022-12-25 00:41] LABS: Bacteria Urine 4+ (None Seen); Hyaline Casts Urine 0-2 /LPF (0-2); RBC Urine >20 /HPF (0-2); Squamous Epithelial Cell Urine 0-2 /HPF (0-2); UACC Culture Trigger YES; WBC Urine 21-50 /HPF (0-5)
[2022-12-25] MEDS: diphenhydrAMINE HCL 25 MG CAPSULE PO (00:43)
[2022-12-25 00:45] LABS: HCG Quantitative < 2 mIU/mL
--- OUTSIDE RECORDS SUMMARY | 2022-12-25 01:03 | XMS_ITS | Continuity of Care Document ---
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 Role Phone Hameed MAXIME, Kalyani White Primary Care Physician [id number] Date(s): 11/05/22 - 12/05/22 [facility] [address] [place], [place] [address] Attending Physician: Joana Blackburn Admitting Physician: AdmJoana menard Referring Physician: trJoana Allergies, Adverse Reactions, Alerts No Known Allergies Medications Flonase 50 mcg/inh nasal spray 1 sprays, Nares, Both, 2 times a day, # 1 each, 2 Refills, Maintenance, 03/18/22 16:31:00 EDT, [place], [id number], Partial fill upon patient request if the prescription is for a schedule II opioid drug., 1 sprays Nares, Both 2 times a... Start Date: 03/18/22 Stop Date: 06/16/22 Status: Ordered ibuprofen 600 mg oral tablet 1 tablet = 600 mg, By Mouth, Every 6 hours, # 30 tablet, 0 Refills, Maintenance, 09/12/14 12:02:10,Tablet Start Date: 09/12/14 Status: Ordered Percocet-5/325 325 mg-5 mg oral tablet 1 tablet, By Mouth, Every 4 hours, PRN for pain, # 10 tablet, 0 Refills, Maintenance, 09/12/14 12:02:15, Tablet Start Date: 09/12/14 Status: Ordered tiZANidine 2 mg oral capsule See Instructions, PRN as needed for muscle spasm, 1-2 capsules By Mouth 2x/d day (do not drive or operate machinery if drowsy), # 20 capsule, 5 Refills, Maintenance, 11/05/22 15:37:00 EST, [place], [id number], Partial fill upon patien... Start Date: 11/05/22 Status: Ordered Social History Social History Type Response Smoking Status 10 or more cigarette s (1/2 pack or more)/day in last 30 days entered on: 02/02/19 Sex Patient Care team information Care Team Personnel Name: Kalyani Hameed NP Position: Reference Physician Member Role: PCP Address: Address: [address] [place] [address] [address] [facility] [place] [address]- Care Team Related Persons Name: JUNAID STALEY Address: [address] [place] [address]
--- NOTE | 2022-12-25 01:35 | ED.GENADULT ---
HPI - General Adult General Chief complaint: General Medical Stated complaint: menstrual cramps, bumps on hand, bleeding more Time Seen by Provider: 12/25/22 00:06 Source: patient Mode of arrival: ambulatory History of Present Illness HPI narrative: 37-year-old female who presents with concerns regarding lower abdominal cramping and her menstrual cycle lasting 1.5 weeks. SHe denies any associated fever, chills, nausea, vomiting. She reports she has had previous episodes of menorrhagia Related Data Previous Rx's Medication Instructions Recorded cyclobenzaprine 10 mg tablet 10 mg PO TID PRN pain, muscle 07/29/22 spasm #15 tabs morphine 15 mg immediate release 15 mg PO Q4-6H PRN pain #10 tabs 07/29/22 tablet cefuroxime axetil 250 mg tablet 250 mg PO Q12H #14 tabs 08/02/22 acetaminophen 500 mg tablet 500 mg PO Q6H PRN fever or pain 11/19/22 #14 tabs cefdinir 300 mg capsule 300 mg PO BID 5 days #10 caps 12/25/22 Allergies Allergy/AdvReac Type Severity Reaction Status Date / Time No Known Allergies Allergy Verified 12/24/22 22:53 Review of Systems Review of Systems: Pertinent positives and negatives as stated in HPI [facility] Past Medical History Source: nursing notes reviewed Medical History Chronic back pain Social History Social History Alcohol intake: current Alcohol intake frequency: a few times a week Alcohol type: hard liquor Smoked in Last 30 Days: Yes Use of substances other than those prescribed or required for medical reasons: Yes Substance Use Type: Marijuana Substance Use Frequency: Daily Advance Directives: No Advance Directives Information Provided: Yes Patient : No Physical Exam ED Vital Signs: Vital Signs - 24 hr 12/24/22 22:49 Temperature 98.3 F Pulse Rate 104 H Respiratory Rate 20 Blood Pressure 119/86 Pulse Oximetry 98 Oxygen Delivery Method Room Air BMI result Body Mass Index 37.7 VITAL SIGNS: Reviewed. GENERAL: Well developed, well nourished, in no acute distress. HEAD: Normocephalic/atraumatic EYES: PERRLA, EOMI EARS: Ext canals without abnormality LUNGS: Normal breath sounds. No adventitious sounds or accessory muscle use. SpO2<98> CARDIOVASCULAR: Regular rate and rhythm without noted murmurs ABDOMEN: Soft, mild tenderness to palpation in lower abdomen without rebound, non-distended with bowel sounds. MUSCULOSKELETAL: No tenderness, deformities, or effusions noted on gross inspection. EXTREMITIES: No cyanosis, clubbing or edema. SKIN: Inspection of the skin reveals no rashes, patient does have noted nodules in the palms and soles that I suspect is allergic in nature NEUROLOGIC: Alert and oriented x 3. Strength and sensation to light touch were grossly intact x 4. Medications Administered Discontinued Medications Generic Name Dose Route Start Last Admin Trade Name Freq PRN Reason Stop Dose Admin Diphenhydramine HCl 25 mg 12/25/22 00:21 12/25/22 00:43 Diphenhydramine Hcl 25 Mg Capsule PO 12/25/22 00:22 25 mg ONCE ONE Administration Medical Decision Making Medical Decision Making MDM Narrative: 37-year-old female with history and clinical presentation and will rule out UTI, ectopic, ovarian cyst. Patient received Benadryl for the reactive nodules in her hands and feet, no clinical suspicion for syphilis at this time. 0343: I reviewed all laboratory workup which in my interpretation appears to be a significant UTI. Patient will receive initial antibiotics, combination analgesics on re-evaluation is feeling much better. My interpretation of the ultrasound study in the context of the history is not consistent with a TOA/PID/ovarian torsion. test is negative. 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 Differential Diagnosis Please see the discussion above Lab Data Please see the discussion above 12/24/22 23:19 12/24/22 23:19 Labs: Lab Results 12/24/22 12/24/22 12/25/22 Range/Units 23:19 23:19 00:29 WBC 7.1 (4.8-10.8) X10*3/uL RBC 4.90 (4.20-5.50) X10*6/uL Hgb 11.9 L (12.0-16.0) g/dl Hct 38.2 (37.0-47.0) % MCV 78.0 L (80.0-98.0) fL MCH 24.3 L (27.0-33.0) pg MCHC 31.2 (31.0-35.0) g/dl RDW 15.5 (11.0-16.0) % Plt Count 412 H (160-400) X10*3/uL MPV 9.1 L (9.4-12.3) fL Immature Gran % (Auto) 0.4 (0.0-0.4) % Neut % (Auto) 55.0 (45-73) % Lymph % (Auto) 30.2 (20-40) % [place] % (Auto) 7.5 (2-11) % Eos % (Auto) 6.2 H (0-4) % Baso % (Auto) 0.7 (0-2) % Lymph # (Auto) 2.1 (1.2-4.9) X10*3/uL [place]iken # (Auto) 0.5 (0.1-1.2) X10*3/uL Eos # (Auto) 0.4 (0.0-0.4) X10*3/uL Baso # (Auto) 0.1 (0.0-0.2) X10*3/uL Abs Immat Gran (auto) 0.03 (0.00-0.03) X10*3/uL Absolute Neuts (auto) 3.9 (2.0-8.3) x10*3/uL Absolute Nucleated RBC 0.000 (0.0-0.012) X10*3/uL Nucleated RBC % (auto) 0.0 (0.0-0.2) /100WBC Sodium 141 (135-145) mmol/L Potassium 4.2 (3.3-5.1) mmol/L Chloride 110 H (96-108) mmol/L Carbon Dioxide 24 (22-29) mmol/L Anion Gap 11 L (12-20) BUN 9 (9-16) mg/dL Creatinine 0.73 (0.5-1.4) mg/dL Estim Creat Clear Calc 116.7 Estimated GFR > 60 Random Glucose 99 (60-115) mg/dL Calcium 9.1 (8.4-10.2) mg/dL Total Bilirubin 0.4 (0.0-1.0) mg/dL AST 14 (5-31) U/L ALT 10 (0-31) U/L Alkaline Phosphatase 102 (39-117) U/L Total Protein 6.8 (6.5-8.0) g/dL Albumin 3.8 (3.5-5.0) g/dL Beta HCG, Quant < 2 mIU/mL Urine Color Yellow Urine Appearance Cloudy Urine pH 6.5 (5.0-9.0) Ur Specific [place] 1.025 (1.005-1.025) Urine Protein Trace (Neg-Trace) mg/dL Urine Glucose (UA) Negative (Negative) mg/dL Urine Ketones Trace (Negative) mg/dL Urine Blood Large (3+) H (Negative) Urine Nitrite Positive H (Negative) Ur Leukocyte Esterase Small (1+) H (Negative) Urine RBC >20 H (0-2) /HPF Urine WBC 21-50 H (0-5) /HPF Ur Squamous Epith Cells 0-2 (0-2) /HPF Urine Bacteria 4+ (None Seen) Hyaline Casts 0-2 (0-2) /LPF Radiology Impression Radiologist Impression: My interpretation is in agreement with radiology's impression of the imaging studies. Discharge Plan Discharge Clinical Impression: UTI (urinary tract infection), Menstrual pain, Ovarian cyst Patient Disposition: Home, Self-Care Instructions: Dysmenorrhea (ED), Ovarian Cyst (ED), Urinary Tract Infection in Women (DC) Additional Instructions: 1. Recommend completion of the course of antibiotics as prescribed. 2. Recommend [id number] Tylenol/ibuprofen as needed for pain control. 3. 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 Return to the ER for any worsening symptoms. Prescriptions: New cefdinir 300 mg capsule 300 mg PO BID 5 Days Qty: 10 0RF No Action cyclobenzaprine 10 mg tablet 10 mg PO TID PRN (Reason: pain, muscle spasm) Qty: 15 0RF morphine 15 mg tablet 15 mg PO Q4-6H PRN (Reason: pain) Qty: 10 0RF Rx Instructions: The patient may ask for partial fill; Partial Fill upon patient request. cefuroxime axetil 250 mg tablet 250 mg PO Q12H Qty: 14 0RF acetaminophen 500 mg tablet 500 mg PO Q6H PRN (Reason: fever or pain) Qty: 14 0RF
[2022-12-25] MEDS: Acetaminophen 325 MG TABLET 975 MG PO (03:47)
[2022-12-25] MEDS: Ibuprofen 800 MG TABLET PO (03:48)
== END 2022-12-25 03:59 | disposition home or self-care (01) ==
PROVIDERS: Emergency Provider Student in an Organized Health Care Education/Training Program
DX: N39.0 Urinary tract infection, site not specified (principal); N94.6 Dysmenorrhea, unspecified; N83.202 Unspecified ovarian cyst, left side; R10.30 Lower abdominal pain, unspecified; F12.90 Cannabis use, unspecified, uncomplicated; Z79.899 Other long term (current) drug therapy
CPT/HCPCS: 36415; 76856; 80053; 81001; 84702; 85025; 87086; 99284